=== PATIENT | female | born 1945 | race Caucasian/White ===

== ENCOUNTER → 2016-11-12 | Day surgery (SDC) | payer OTHER ==
[~2016-11-12] VITALS: Ht 154.9 cm; Wt 60.2 kg
[~2016-11-12] MED LIST: *RESP: ALBUTEROL 2.5 MG/3 ML NEB (PRN) PERIprocedural Use ONLY NEB ONE; ADVA250A INH; BUPIVACAINE HCL PF 0.5% 30 ML VIAL ONE; CHLORHEXIDINE GLUCONATE 2 % 1 PACK (2 CLOTHS) TOPICAL PRN; CLOPIDOGREL 75 MG TAB PO ONE; CLOPIDOGREL 75 MG TAB PO SCH; DEXAMETHASONE SOD PHOS 4 MG/ML VIAL IV ONE; DEXMEDETOMIDINE HCL 200 MCG/2 ML VIAL ONE; DO NOT ADM ANY ANTICOAGULANT DRUGS PRN; FAMOTIDINE 20 MG/2 ML VIAL ONE; HEPARIN SODIUM - IV 10,000 UNITS/10 ML VIAL ONE; HEPARIN-NS/PF INJ 500 ML ONE; INSULIN HUMAN REGULAR 1,000 UNITS/10 ML VIAL SQ PRN; IOHEXOL 300 MG/ML 50 ML BTL (for RAD DIAG) OTHER ONE; IOHEXOL 350 MG/ML 50 ML BTL (for RAD DIAG) IVCONTRAST ONE; LACTATED RINGER'S 1000 ML IV PRN; LOSA25TA PO; METOPROLOL TARTRATE 25 MG TAB PO PRN; MIDAZOLAM HCL 2 MG/2 ML VIAL IV ONE; OMEP40CA2 PO; ONDANSETRON HCL 4 MG/2 ML VIAL IV PUSH ONE; OXYC-392 PO; PARO40TA2 PO; PHENYLEPH/NS 1000 MCG/10 ML SYR IV ONE; POVIDONE IODINE 5% (ANTISEPSIS KIT) 4 APPLICATIONS EACH NARE PRN; PROP80TA PO; PROPOFOL 200 MG/20 ML AMP IV ONE; PROTAMINE SULFATE 50 MG/5 ML VIAL ONE; SODIUM CHLORID 0.9% 500 ML IV PRN; VENTAER INH; ceFAZolin 2 GM PREMIX 50 ML ONE
[2016-11-12 12:40] LABS: BASOPHIL # 0.1 TH/MM3 (0-0.2); BASOPHIL % 0.7 % (0.0-2.0); EOSINOPHIL # 0.3 TH/MM3 (0-0.4); EOSINOPHIL % 2.7 % (0.0-4.0); HEMO FLAGS DIFF FINAL; LYMPH % 15.1 % (9.0-44.0); LYMPHOCYTE # 1.7 TH/MM3 (1.0-4.8); MEAN CELL VOLUME 93.9 FL (80.0-100.0); MEAN CORPUSCULAR HEMOGLOBIN 31.3 PG (27.0-34.0); MEAN CORPUSCULAR HGB CONC 33.3 % (32.0-36.0); MONO % 10.2 % (0.0-8.0); NEUT % 71.3 % (16.0-70.0); PLATELET COUNT 428 TH/MM3 (150-450); RED BLOOD COUNT 4.47 MIL/MM3 (4.00-5.30); RED CELL DISTRIBUTION WIDTH 13.4 % (11.6-17.2); WHITE BLOOD COUNT 11.2 TH/MM3 (4.0-11.0)
[2016-11-12 12:43] LABS: BACTERIA, URINE OCC /hpf; BLOOD, URINE NEG (NEG); COMMENT (UR) CULTURE INDICATED; CULTURE IF INDICATED CULTURE INDICATED; GLUCOSE,URINE NEG (NEG); KETONE, URINE NEG (NEG); NITRITE,URINE NEG (NEG); PH, URINE 6.5 (5.0-8.5); SQUAMOUS EPITHELIAL CELL URINE 13 /hpf (0-5); URINE COLOR YELLOW (YELLW/STRAW)
[2016-11-12 12:50] LABS: PROTHROMBIN TIME - PATIENT 10.5 SEC (9.8-11.6)
--- NOTE | 2016-11-12 12:52 | RADRPT ---
EXAM DATE/TIME: 11/12/2016 12:08 [place] COMPARISON: No previous studies available for comparison. INDICATIONS : Pre-op angiogram. Evaluate for pneumonia, pneumothorax, or communicable diseases. MEDICAL HISTORY : None. SURGICAL HISTORY : None. ENCOUNTER: Initial ACUITY: 1 day PAIN SCORE: 0/10 LOCATION: Bilateral chest FINDINGS: The lungs are clear. Heart size upper limits normal. The right mediastinal border is prominent and power spect for ascending aortic aneurysm. Degenerative changes of the spine. CONCLUSION: Clear lungs. Prominent ascending aortic contour are suspect for aneurysm. Mitul Montemayor MD on November 12, 2016 at 12:50 Board Certified Radiologist. This report was verified electronically.
[2016-11-12 12:55] LABS: APTT (PATIENT) 26.6 SEC (24.3-30.1)
[2016-11-12 12:56] LABS: BICARBONATE 24.6 MEQ/L (21.0-32.0)
[2016-11-12 12:58] LABS: POTASSIUM 4.2 MEQ/L (3.5-5.1)
--- NOTE | 2016-11-12 13:24 | PD.VS.PN ---
Pre-operative Note Pre-operative diagnosis: PAD, LLE Planned procedure: Aortogram w/ L LE angiogram, BREAD BAKER/stent Interval History: No interval changes in history and physical since I saw her in clinic. Ready for surgery Labs: Laboratory Results Test 11/12/16 12:25 Anion Gap 7 MEQ/L (5-15) Blood Urea Nitrogen 16 MG/DL (7-18) Creatinine 1.23 MG/DL (0.50-1.00) Random Glucose 101 MG/DL (74-106) Calcium Level 8.9 MG/DL (8.5-10.1) Sodium Level 136 MEQ/L (136-145) Potassium Level 4.2 MEQ/L (3.5-5.1) Chloride Level 104 MEQ/L (98-107) Carbon Dioxide Level 24.6 MEQ/L (21.0-32.0) Hematocrit 42.0 % (35.0-46.0) Hemoglobin 14.0 GM/DL (11.6-15.3) Mean Corpuscular Hemoglobin 31.3 PG (27.0-34.0) Mean Corpuscular Hemoglobin Concent 33.3 % (32.0-36.0) Mean Corpuscular Volume 93.9 FL (80.0-100.0) Mean Platelet Volume 8.3 FL (7.0-11.0) Platelet Count 428 TH/MM3 (150-450) Prothromb Time International Ratio 1.0 RATIO Red Blood Count 4.47 MIL/MM3 (4.00-5.30) Red Cell Distribution Width 13.4 % (11.6-17.2) White Blood Count 11.2 TH/MM3 (4.0-11.0) Blood: none needed Imaging: will make in [facility] Last Impressions Chest X-Ray 11/12/16 0000 Signed Impressions: Service Date/Time: Saturday, November 12, 2016 12:08 - CONCLUSION: Clear lungs. Prominent ascending aortic contour are suspect for aneurysm. Mitul Montemayor MD Orders: NPO Ancef 2g IV OCTOR Post-operative destination: PACU Operative site marked: Yes Consent: Informed consent has been obtained from Arsen Jones. I have explained the procedure in detail and discussed the risks, benefits, and potential complications. All questions have been answered. Patient contact information: son [phone] Joao Brink MD Nov 12, 2016 13:24
--- NOTE | 2016-11-12 14:28 | HHI.PR ---
Immediate Post Op Note Procedure Date: Nov 12, 2016 Pre Op Diagnosis: PAD, L LE Post Op Diagnosis: same Surgeon: Joao Brink Assembler(s): none Procedure: Aortogram L SHAILESH stent (8x40 Zilver) Findings: high grade calcific stenosis L SHAILESH, successful stent Additional Information: strong PT signals after case Complications: none Specimen(s) removed: none Estimated blood loss: 10mL Anesthesia: MAC Drains: None Fluids: 900mL IVF Patient to: PACU Patient Condition: Good Implant/Devices: SEE IMPLANT LOG (if applicable) Date/Time of Procedure: SEE SURGICAL CARE RECORD Joao Brink MD Nov 12, 2016 14:28
[2016-11-12 16:50] VITALS: BP 108/75; PULSE 71; RESP 20; TEMP 98.1; O2SAT 94
--- NOTE | 2016-11-12 21:18 | MP ---
cc: JOAO BRINK DATE OF SURGERY 11/12/16 PREOPERATIVE DIAGNOSIS Left lower extremity PAD and rest pain. POSTOPERATIVE DIAGNOSIS Left lower extremity PAD and rest pain. PROCEDURE Left iliac stent with an 8 x 40 Zilver and aortogram. DESCRIPTION OF PROCEDURE Informed consent obtained from the patient. She was taken to the operating room and placed supine on the operating table. An appropriate time-out was taken to ensure the patient, the operative site and the planned procedure. Two grams of Kefzol were initiated prior to skin incision and will be discontinued after a single preoperative dose. Everyone in the room agreed to timeout and we proceeded. Her bilateral groins were prepped and draped. The left groin was anesthetized with 1% lidocaine. A 21 gauge micropuncture needle was used to access the left common femoral artery. This was exchanged using Seldinger technique for micropuncture sheath through which a 0.05 Glidewire was introduced. The micropuncture sheath was exchanged for a 5-[place] sheath and VCF catheter was placed over the wire in through the sheath and the aortogram, pelvic arteriogram was obtained. The patient was systemically heparinized with 3000 units of IV heparin. A Macdonald wire was introduced through the VCF catheter. The VCF catheter was removed. The 5-[place] sheath was removed and a 6-[place] sheath was introduced. An 8 x 40 Zilver self-expanding stent was introduced and deployed without difficulty and postdilated to 7 mm. At completion angiogram showed excellent result in a recoil extravasation. Wire, catheter and sheath were removed and the groin was closed with AngioSeal. There were no complications. I was present, scrubbed and performed the entire procedure. INTERPRETATION The patient has patent infrarenal aorta. Common iliac arteries with a high-grade left mid common iliac artery stenosis and a very large lumbar collateral. The left internal iliac artery is occluded and the external iliac artery is widely patent. After angioplasty and stent there is resolution of the high-grade stenosis without any extravasation or recoil of the stent. Joao Brink MD RJF/ZULMA /7:03 PM /9:03 PM
--- NOTE | 2016-11-13 15:40 | EKG ---
Date Performed: 11/12/2016 Time Performed: 12:25:08 PTAGE: 71 years EKG: Sinus rhythm NORMAL ECG NO PREVIOUS TRACING DOCTOR: Reece Wren Interpretating Date/Time 11/13/2016 15:37:55
== END | disposition home or self-care (01) ==
LOC: HCVO 11:39
PROVIDERS: ATTEND Surgery
DX: I70.222 Atherosclerosis of native arteries of extremities with rest pain, left leg (principal); I10 Essential (primary) hypertension; J44.9 Chronic obstructive pulmonary disease, unspecified; G57.92 Unspecified mononeuropathy of left lower limb; K21.9 Gastro-esophageal reflux disease without esophagitis; F32.9 Major depressive disorder, single episode, unspecified; G47.00 Insomnia, unspecified; Z85.118 Personal history of other malignant neoplasm of bronchus and lung; Z87.891 Personal history of nicotine dependence; Z79.51 Long term (current) use of inhaled steroids; Z79.899 Other long term (current) drug therapy
CPT/HCPCS: 00880; 37221; 71010; 75710; 80048; 81001; 85025; 85610; 85730; 86850; 86900; 86901; 86902; 86920; 86922; 87086; 93005; 94664; C1725; C1769; C1876; J0690; J1100; J1644; J2250; J2370; J2405; J3010; J7120; J7613; Q9967; J2720